=== PATIENT | female | born 1990 | race Caucasian/White ===

== ENCOUNTER 2018-03-01 08:26 | Inpatient (IN) | payer OTHER ==
[~2018-03-01] VITALS: Ht 154.9 cm; Wt 99.8 kg
[~2018-03-01 08:26] MED LIST: ASPIRIN EC81 M1 PO; PRENATAL TABLE1 EAC2 PO
--- NOTE | 2018-03-01 08:59 | History & Physical ---
General Information and HPI MD Statement: I have seen and personally examined MICHAEL BECKER and documented this H &P. The patient is a 27 year old female at [38] weeks and [3] days gestation who presented with a chief complaint of Factor V Leiden deficiency]. History of Present Illness: 25yo lmp 06/05/17 edc 03/12/18 at 38w3d here for IOL secondary to Factor V Leiden [id number]. care complete and significant for late transfer and as above. No history of DVT. On lovenox in 2nd an3rtd trimester. 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 EENTM: Reports: no symptoms. Cardiovascular: Reports: no symptoms. Respiratory: Reports: no symptoms. GI: Reports: no symptoms. Genitourinary: Reports: no symptoms. Musculoskeletal: Reports: no symptoms. Skin: Reports: no symptoms. Neurological/Psychological: Reports: no symptoms. Hematologic/Endocrine: Reports: no symptoms. Immunologic/Allergic: Reports: no symptoms. All Other Systems: Reviewed and Negative Exam & Diagnostic Data Obstetric Exam Wgt Gained During : 40 Pelvimetry: gynecoid Dilation (cm): 0 Effacement (%): 0 Station: -2 Membranes: intact Fluid: unknown Fundal Height (cm): 41 Multiple Gestation? No Contractions: none #1 - FHR Baseline: 140 Category: 1 Estimated Weight: 9 Presentation: cephalic Patient for Induction? Yes Igron Score Giron Score Response Value Cervix Position: posterior 0 Cervix Consistency: medium 1 Cervix Effacement: 0-30% 0 Cervix Dilation: closed 0 Cervix Station: -2 1 Total 2 Physical Exam: HEENT: NCAT Chest: CTA CV: nl S1S2 Abd: gravid,cephalic, EFW 8-9 Cx: LTCP Ext: no c/c/e Labs Blood Type & Rh: O pos Antibody Screen: neg Hct/Hgb & Platelets #1: 37 Hct/Hgb & Platelets #2: Rubella: imm VDRL #1: nr VDRL #2: nr HbsAg: neg HIV #1: neg HIV #2 neg 1 Hr P Group B Strep: neg Initial Ultrasound: wnl Anatomy Ultrasound: wnl Ultrasound for EFW: 06/12 Genetic Testing: neg Assessment/Plan Assessment/Plan: factor V Leiden poor giron score Miso cervical ripening As Ranked By This Provider Problem List: 1. Factor V Leiden Core Measures Venous Thromboembolism VTE Risk Factors Other No Mechanical VTE Prophylaxis d/t N/A MechProphylax Ordered No VTE Pharm Prophylaxis d/t Bleeding (Active)
[2018-03-01 09:16] LABS: ABSOLUTE BASOPHIL COUNT 0 /CUMM (0.0-0.2); ABSOLUTE EOSINOPHIL COUNT 0.3 /CUMM (0.0-0.7); ABSOLUTE GRANULOCYTE CT 6.6 /CUMM (1.4-6.5); ABSOLUTE LYMPH COUNT 1.9 /CUMM (1.2-3.4); ABSOLUTE MONOCYTE COUNT 0.7 /CUMM (0.10-0.60); BASOPHIL % 0.2 % (0.0-2.0); EOSINOPHIL % 3.1 % (0-5); GRANULOCYTE % 69.4 % (42.2-75.2); HEMATOCRIT 33.2 % (37-47); MEAN CORPUSCULAR HGB 29.8 PG (27.0-31.0); MEAN CORPUSCULAR HGB CONC 34.2 G/DL (33.0-37.0); MEAN PLATELET VOLUME 9.9 FL (7.4-10.4); PLATELET COUNT 191 /CUMM (130-400); RBC DISTRIBUTION WIDTH 14.8 % (11.5-14.5); RED BLOOD CELL CT 3.82 /CUMM (4.20-5.40); WHITE BLOOD CELL COUNT 9.6 /CUMM (4.8-10.8)
[2018-03-01 09:30] VITALS: BP 136/71
[2018-03-01] MEDS ORDERED: PROAIR HFA8.5 GM INH (09:32)
[2018-03-01] MEDS ORDERED: LOVENOX30 MG/0.1 (09:33)
--- NOTE | 2018-03-02 21:36 | PN- Obstetrical ---
Subjective Subjective: C/O PAIN DENIES SROM Objective Last 24 Hrs of Vital Signs/I&O PER CHART Physical Exam: PE OBESE WFIN NAD HEENT ANICTERIC LUNGS CLEAR ABD SOFT NT EXT-EDEMA -HOMANS VENODYNES IN PLACE Physical Exam Pelvic (FEMALE) Appearance Normal Obstetric Exam Dilation (cm): 3 Effacement (%): 50 Station: 0 Membranes: intact Fluid: clear Multiple Gestation? No Contractions: Q 3MINUTES #1 - FHR Baseline: 140 Category: 1 Estimated Weight: 9 Presentation: cephalic Assessment/Plan Assessment/Plan ASSESS FACTOR V LEIDEN PLAN D/C HENDRIX OOB PIUTOCIN IN AM REGDIET
--- NOTE | 2018-03-03 09:17 | PN- Obstetrical ---
Subjective Subjective: No headaches no active bleeding IV site Objective Last 24 Hrs of Vital Signs/I&O As per protogen VSS Physical Exam: Obese white female in no apparent distress abdomen soft estimated weight 3900 g 70s negative Homans negative edema Vena dines in place Obstetric Exam Dilation (cm): 3 Effacement (%): 80 Station: 0 Membranes: AROM Fluid: clear Multiple Gestation? No Contractions: None #1 - FHR Baseline: 140 Category: 1 Estimated Weight: 9 Presentation: cephalic Assessment/Plan Assessment/Plan Jodie factor V Leiden deficiency plan is for rupture of membranes Pitocin anticipate
--- NOTE | 2018-03-03 16:45 | PN- Obstetrical ---
Subjective Subjective: NO COMPLAINTS Objective Last 24 Hrs of Vital Signs/I&O PER CHART Physical Exam: PE OBESE WF IN NAD ABD SOFT NT EFW 3900 EXT +1 EDEMA Obstetric Exam Dilation (cm): 5 Effacement (%): 80 Station: 0 Membranes: AROM Fluid: clear Multiple Gestation? No Contractions: Q 3 MINUTES Infant #1 - FHR Baseline: 140 Category: 1 Estimated Weight: 9 Presentation: cephalic Assessment/Plan Assessment/Plan ASSESS TERM FACTOR V ARREST OF DILATATION
--- NOTE | 2018-03-03 18:03 | Operative Report ---
Operative/Inv Procedure Report Surgery Date: 03/03/18 Name of Procedure: A low flap transverse section via Pfannenstiel skin incision Pre-Operative Diagnosis: Arrest of dilatation term Post-Operative Diagnosis: Same soft tissue dystocia Estimated Blood Loss: 500 Surgeon/Smoking Tobacco Packer Hand: Chloe Shearer M.D. and Dr. Torres Anesthesia: block Operative/Procedure Note Note: U note patient was taken to the operating room placed supine position after adequate skin testing for us epidural anesthesia patient the abdomen was prepped and draped so fashion on through a Pfannenstiel skin incision skin was cut was carried down to rectus fascia which was cut in curvilinear fashion I direction peritoneal cavity was entered high into the abdomen patient tolerated that well at this point the low blade the Logan was placed and lower and incision the visceral peritoneum of the uterus was dissected anteriorly bladder flap was developed patient tolerated that well in the lower uterine segment uterus was nicked entered with the back of knife dissected bluntly as well as sharply on since removed field the was delivered over the abdominal wall on the course of clamped and cut after reducible cord patient tolerated this well placenta was wiped clean with 2 wet dry last insurance free of adherent membranes I hemostasis was achieved using intramyometrial Pitocin and Methergine uses oversewn running locking suture 2 I interrupted [id number] were used for hemostasis uterus was returned to abdominal cavity hemostasis was apparent patient tolerated this well the peritoneum was reapproximated 0 the fascia was reapproximated to continue sutures #1 skin edges Argenis had been applied to the surgical scar subcutaneous tissue was Bovie coagulated the skin was reapproximated belen at the end the case sterile dressings were applied on the patient was informed the infant status she was awakened from anesthesia and transferred recovery room awake alert with counts correct and clear urine Findings: Viable female cord around the neck 1 reducible normal ovaries bilaterally three-vessel cord placenta with a question of a 4 cm clot otherwise normal anatomy
[2018-03-03 19:37] LABS: ABSOLUTE BASOPHIL COUNT 0 /CUMM (0.0-0.2); ABSOLUTE EOSINOPHIL COUNT 0.1 /CUMM (0.0-0.7); ABSOLUTE GRANULOCYTE CT 14.8 /CUMM (1.4-6.5); ABSOLUTE LYMPH COUNT 0.9 /CUMM (1.2-3.4); ABSOLUTE MONOCYTE COUNT 0.6 /CUMM (0.10-0.60); BASOPHIL % 0 % (0.0-2.0); EOSINOPHIL % 0.3 % (0-5); HEMATOCRIT 34.6 % (37-47); MEAN CORPUSCULAR HGB 29.6 PG (27.0-31.0); MEAN CORPUSCULAR HGB CONC 33.8 G/DL (33.0-37.0); MEAN CORPUSCULAR VOLUME 87.6 FL (81.0-99.0); MEAN PLATELET VOLUME 9.4 FL (7.4-10.4); PLATELET COUNT 203 /CUMM (130-400); RBC DISTRIBUTION WIDTH 14.3 % (11.5-14.5); RED BLOOD CELL CT 3.96 /CUMM (4.20-5.40)
[2018-03-03 20:02] LABS: GRANULOCYTE % 90.4 % (42.2-75.2); WHITE BLOOD CELL COUNT 16.4 /CUMM (4.8-10.8)
--- NOTE | 2018-03-04 07:54 | PN- Post Delivery/GYN ---
Subjective Subjective: NO COMPLAINTS ABD SOFT NT INCISION CDI INCISION DRESSING IN PLACE EXT -EDEMA-HOMANS MINIMAL LOCHIA Objective Last 24 Hrs of Vital Signs/I&O VSS Assessment/Plan Assessment/Plan ASSESS S/PC/S PLAN CONT PPC LOVENOX
[2018-03-04 08:11] LABS: ABSOLUTE BASOPHIL COUNT 0 /CUMM (0.0-0.2); ABSOLUTE EOSINOPHIL COUNT 0 /CUMM (0.0-0.7); ABSOLUTE GRANULOCYTE CT 9.9 /CUMM (1.4-6.5); ABSOLUTE LYMPH COUNT 1.6 /CUMM (1.2-3.4); BASOPHIL % 0.1 % (0.0-2.0); EOSINOPHIL % 0.2 % (0-5); GRANULOCYTE % 79.1 % (42.2-75.2); MEAN CORPUSCULAR HGB CONC 34.3 G/DL (33.0-37.0); MEAN CORPUSCULAR VOLUME 87.4 FL (81.0-99.0); MEAN PLATELET VOLUME 10.2 FL (7.4-10.4); PLATELET COUNT 179 /CUMM (130-400); RBC DISTRIBUTION WIDTH 14.9 % (11.5-14.5); RED BLOOD CELL CT 3.25 /CUMM (4.20-5.40); WHITE BLOOD CELL COUNT 12.6 /CUMM (4.8-10.8)
[2018-03-04 09:32] LABS: HEMATOCRIT 28.5 % (37-47)
[2018-03-04] MEDS ORDERED: PERCOCET 5-3251 EACH PO (11:46)
[2018-03-04] MEDS ORDERED: IBUPROFEN800 M1 PO (11:46)
--- NOTE | 2018-03-05 10:41 | PN- OBGYN ---
Surgical Brief Attending Note Brief Attending Note: Seen and examined. Doing well Tolerating diet Wants to breast feed. Denies headaches visual changes Pain controlled Vitals per paper record 150/90 most recent Lungs clear Abdomen soft and nontender Wound intact Ext with 1+ pedal edema. Meds. Lovenox. Hct 28 POD#2 for this patient with history of Factor V leiden. Patient had failed induction of labor. GI. Tolerating diet. VTE prophylaxis. Recommend continuation of daily prophylaxis. Elevated BP but no symptoms of preeclampsia. As long as levels are less than 150/100 than no need for medications. Will follow. She is at risk given obesity and factor 5 and first baby. Depression history. She was on zoloft in the past. She wants to restart. I will restart her on same. Zoloft by the literature is not detectable in the breast milk. In my opinion benefits of breast feeding would outweight any potential risks to . Mild anemia. Iron supplementation recommemded DC for tomorrow 03/06/18
[2018-03-06] MEDS ORDERED: ZOLOFT100 M1 PO (09:25)
--- NOTE | 2018-03-06 09:40 | Surgical Discharge Summary ---
Visit Information Visit Dates Admission Date: 03/01/18 Discharge Date: 03/06/18 History of Present Illness Chief Complaint: Induction for Factor V Leiden Medical History Blood Transfusion Hx: No Neurological: NONE EENT: NONE Cardiovascular: NONE Respiratory: asthma Gastrointestinal: NONE Hepatic: NONE Renal: NONE Musculoskeletal: NONE Psychiatric: depression Endocrine: NONE Blood Disorders: FACTOR 5 LEIDEN Cancer(s): NONE RELAY ASSOCIATE/Reproductive: NONE Other Medical Hx: na History of MRSA: No History of VRE: No History of CDIFF: No Isolation History: Standard Pneumonia Vaccine Status: Never received in past Influenza Vaccine Status Given in past- Date Above Tetanus Status: not up to date Surgical History Pertinent Surgical History: non-contributory Psychosocial History Where Do You Live? Home Who Do You Live With? Spouse Services at Home: None What is Your Primary Language? Lao Tobacco History: na ETOH Use: denies use Illicit Drug Use History: na Other Addictive Behavior: na Review of Systems: No complaints Physical Exam: Aox3 NAD Lungs clear Abdomen soft and wound intact, fundus firm No cvat 1-2+ edema peripheral and negative homans Neuro grossly intact Hospital Course Course Attending Physician: Evan Bernal MD [facility] Course: S/p LTCS for failed induction of labor Complications: none Allergies: Coded Allergies: NO KNOWN ALLERGIES (12/01/12) Significant Procedures: LTCS Pertinent Lab Results: see above Disposition Summary Disposition Principal Diagnosis: Failed induction of labor Additional Diagnosis: Factor V Leiden Discharge Disposition: home or self care Discharge Instructions General Discharge Information Code Status: Full Code Patient's Diet: Regular Patient's Activity: As tolerated Follow-Up Instructions/Appts: 2-3 days with CBC 7-10 days with Primary Obgyn Medications at Discharge Discharge Medications: Continue taking these medications: Vit No.130/Iron/FA ( Tablet) 27 MG IRON-800 MCG TABLET 1 Tablet ORAL DAILY Albuterol Sulfate (Proair Hfa) 90 MCG HFA.AER.AD 2 Puff Inhale through mouth EVERY 4-6 HOURS NEEDED as needed for ASTHMA Enoxaparin Sodium (Lovenox) 30 MG/0.3 ML SYRINGE Start taking the following new medications: Ibuprofen (Ibuprofen) 800 MG TABLET 800 Milligram ORAL EVERY SIX HOURS NEEDED as needed for UTERINE CRAMPING Qty = 30 No Refills Comments: Last Taken: 03/06/18 Time: 6:10 am Oxycodone HCl/Acetaminophen (Percocet 5-325 MG Tablet) 5 MG-325 MG TABLET 1 Tablet ORAL EVERY 4 HOURS NEEDED as needed for PAIN SCALE 4-6 (MODERATE ) Qty = 30 No Refills Comments: Last Taken: 03/06/18 Time: 3:10 am Sertraline HCl (Zoloft) 100 MG TABLET 100 Milligram ORAL DAILY Qty = 30 No Refills Copies To: Odilon East MD,Evan Attending MD Review Statement Attending Statement Attending MD Statement: examined this patient Attending Assessment/Plan: Breast feeding counseling VTE risks reviewed Restarted on Zoloft so will need her Psychiatry follow up. Wanted to restart. No contraindications to breast feeding noted. Pain mgmt strategies Wound care instructions reviewed
[2018-03-06] MEDS ORDERED: IBUPROFEN800 M1 PO (09:58)
[2018-03-06] MEDS ORDERED: PERCOCET 5-3251 EACH PO (09:58)
== END 2018-03-06 11:30 | DRG 540 ==
LOC: GNO 08:26
PROVIDERS: Obstetrics & Gynecology; Specialist
PROC: 10D00Z1 Extraction of Products of Conception, Low, Open Approach (ICD-10-PCS; principal; 2018-03-03)
DX: O62.0 Primary inadequate contractions (principal); O99.12 Other diseases of the blood and blood-forming organs and certain disorders involving the immune mechanism complicating childbirth; D68.51 Activated protein C resistance; O69.81X0 Labor and delivery complicated by cord around neck, without compression, not applicable or unspecified
CPT/HCPCS: GNOP; GNOS; 81001; 82570; 87086; 88307; J0690; J1650; J1885; J2210; J7120